=== PATIENT | female | born 1975 | race Caucasian/White ===

== ENCOUNTER 2016-04-10 00:32 | Emergency (ER) | payer OTHER ==
[2016-04-10 00:41] VITALS: BP 117/85; PULSE 80; TEMP 97.4; BMI 30.9
[2016-04-10] MEDS ORDERED: ALPRAZolam 0.25 MG TABLET PO STA (00:42)
--- NOTE | 2016-04-10 00:42 | PDOC ---
History of Present Illness - General Chief Complaint: Respiratory Stated Complaint: DIFFICULT BREATHING Time Seen by Provider: 04/10/16 00:39 History Source: Patient Exam Limitations: No Limitations - History of Present Illness Initial Comments: 04/10/16 00:39 This is a 40-year-old female who comes in with her friend for evaluation of difficulty breathing patient said she she woke up feeling short of breath and sensation that she couldn't breathe. Patient denied any chest pain. Patient denies any recent illness. She denies any cough, congestion. Patient has history of similar episodes in the past diagnosed as anxiety. Patient doesn't have anything medicine for anxiety. PAST MEDICAL HISTORY: no significant history PAST SURGICAL HISTORY: no significant history FAMILY HISTORY: no pertinant history SOCIAL HISTORY: Pt lives with family and is employed. MEDICATIONS: reviewed ALLERGIES: As per nursing notes Review of Systems General: No fevers or chills, no weakness, no weight loss HEENT: No change in vision. No sore throat,. No ear pain CardioVascular: No chest pain or shortness of breath Respiratory:No cough, or wheezing. , Shortness of breath assessment and plan: This is a 40-year-old female comes in complaining of shortness of breath. Patient's oxygen saturations 100% patient is anxious and her exam is normal. Patient reassured that this is Gastrointestinal: no nausea, vomitting, diarrhea or constipation, No rectal bleeding Genitourinary: No dysuria, hematuria, or frequency Musculoskeletal: No joint or muscle pain or swelling Neurologic: No headache, vertigo, dizziness or loss of consciousness Psychiatric: nor depression Skin: No rashes or easy bruising Endocrine: no increased thirst or abnormal weight change Allergic: no skin or latex allergy All other systems reviewed and normal Exam: General: Well-nourished well-developed individual, no acute distress HEENT: Throat: Normal, tonsils normal, no erythema or exudate Neck: Supple, no meningeal signs, no lymphadenopathy Eyes::Pupils equal reactive and round, extraocular motion intact Chest: Nontender to palpation Cardiac: S1-S2 normal, regular rate and rhythm, no murmurs rubs or gallops Respiratory: Lungs clear to auscultation bilateral Abdomen: Soft, nondistended, normal bowel sounds, nontender to palpation diffusely Extremities: Warm, dry, no cyanosis, clubbing, or edema Skin: No rashes Neuro: Alert and oriented x3, nonfocal exam, grossly intact, normal gait Psych: Normal mood and affect Assessment and plan: This is a 40-year-old female comes in complaining of shortness of breath. Patient exam is normal and has history of a similar episode that most as anxiety. Patient given Xanax and discharged will follow-up with her primary care doctor as needed Past History - Past Medical History Allergies/Adverse Reactions: Allergies Allergy/AdvReac Type Severity Reaction Status Date / Time aspirin AdvReac Verified 04/10/16 00:34 Home Medications: Ambulatory Orders NK [No Known Home Medication] 04/10/16 - Psycho/Social/Smoking Cessation Hx Anxiety: No Suicidal Ideation: No Smoking History: Never smoked Hx Alcohol Use: No Drug/Substance Use Hx: No *DC/Admit/Observation/Transfer Diagnosis at time of Disposition: Anxiety - Discharge Dispostion Disposition: HOME Condition at time of disposition: Stable Admit: No - Patient Instructions Additional Instructions: Return to the emergency department immediately with ANY new, persistent or worsening symptoms. Continue any medications as previously prescribed by your physician. You should follow up with your primary doctor as soon as possible regarding today's emergency department visit. . Please make sure your doctor reviews the results of your emergency evaluation. Thank you for coming to the Emergency Department today for your care. It was a pleasure to see you today. Please note that your evaluation is INCOMPLETE until you follow-up with your doctor.
[2016-04-10] MEDS ORDERED: ALPRAZolam 0.25 MG TABLET ONE (00:43)
== END 2016-04-10 00:47 | disposition home or self-care (01) ==
LOC: FER 00:32
DX: F41.9 Anxiety disorder, unspecified (principal)
CPT/HCPCS: 99281-25